=== PATIENT | male | born 1975 | race Caucasian/White ===

== ENCOUNTER 2017-11-05 21:24 | Emergency (ER) | payer OTHER ==
--- NOTE | 2017-11-05 21:57 | ED.PDOC ---
History of Present Illness - General Chief Complaint: Diabetic Complaint Stated Complaint: needs blood sugar checked Time Seen by Provider: 11/05/17 21:55 Source: patient Exam Limitations: no limitations - History of Present Illness Initial Comments: Benigno Lagunas 42 y/o male diabetic under police custody for drunkeness brought to ER after mom called that he was diabetic and needs blood sugar checked.Has been on Lantus and Novolog-n which he had given 5 hours ago but have not eaten dinner. Timing/Duration: 1-3 hours Severity: mild Improving Factors: nothing Worsening Factors: nothing Associated Symptoms: denies symptoms Allergies/Adverse Reactions: Allergies NO KNOWN ALLERGY Allergy (Unverified 10/09/13 08:47) Home Medications: Ambulatory Orders Lisinopril 11/05/17 Review of Systems - Review of Systems Constitutional: States: no symptoms reported EENTM: States: no symptoms reported Respiratory: States: no symptoms reported Cardiology: States: no symptoms reported Gastrointestinal/Abdominal: States: no symptoms reported Genitourinary: States: no symptoms reported Musculoskeletal: States: no symptoms reported Skin: States: no symptoms reported Neurological: States: no symptoms reported Endocrine: States: see HPI Past Medical History (General) - Patient Medical History Hx Congestive Heart Failure: No Hx Hypertension: Yes Hx Diabetes: Yes Surgical History: no surgical history - Vaccination History Immunizations Up to Date: No - Social History Hx Tobacco Use: Yes Hx Alcohol Use: Yes - Triage Comment ED Triage Comment: needs to make sure pt's slurred speech and slow response not due to diabetic reasons, per Jey Family Medical History - Family History Father Family History: Unknown Physical Exam - Physical Exam General Appearance: Alert, Comfortable, No apparent distress Eye Exam: bilateral normal Ears, Nose, Throat: hearing grossly normal, normal ENT inspection, normal pharynx Neck: non-tender, supple Respiratory: chest non-tender, lungs clear, normal breath sounds Cardiovascular/Chest: normal peripheral pulses, regular rate, rhythm, no murmur Peripheral Pulses: radial,right: 2+, radial,left: 2+ Gastrointestinal/Abdominal: normal bowel sounds, non tender, soft Extremity: non-tender, no pedal edema, no calf tenderness Neurologic: no motor/sensory deficits, alert, oriented x 3 Skin Exam: normal color, warm/dry Lymphatic: no adenopathy Progress - Progress Progress: 11/05/17 21:58 Vital Signs - 8 hr 11/05/17 21:31 Temperature 98.8 F Pulse Rate [ 110 H Right] Respiratory 18 Rate Blood Pressure 135/88 [Left Arm] O2 Sat by Pulse 96 Oximetry - Results/Orders Results/Orders: Laboratory Results - last 24 hr 11/05/17 21:35 POC Glucose 129 H Departure - Departure Clinical Impression: Alcohol consumption binge drinking Diabetes Qualifiers: Diabetes mellitus type: type 1 Diabetes mellitus complication status: with unspecified complications Qualified Code(s): E10.8 - Type 1 diabetes mellitus with unspecified complications Time of Disposition: 22:03 Disposition: Senior Care Condition: Fair Departure Forms: ED Discharge - Pt. Copy, Patient Portal Self Enrollment Referrals: JASPREET WILKINS [Primary Care Provider] - 1-2 Weeks Home Medications: Ambulatory Orders Lisinopril 11/05/17 Additional Instructions: NEED TO HAVE DINNER TONIGHT
[2017-11-06 17:47] VITALS: BP 135/88; TEMP 98.8; O2SAT 96
== END 2017-11-05 22:15 ==
LOC: ER 21:24
DX: Z02.89 Encounter for other administrative examinations (principal); F10.129 Alcohol abuse with intoxication, unspecified; E10.9 Type 1 diabetes mellitus without complications; I10 Essential (primary) hypertension; Z79.4 Long term (current) use of insulin